=== PATIENT | male | born 1975 ===

== ENCOUNTER 2017-03-29 07:18 | Observation (INO) | payer BC ==
--- NOTE | 2017-03-29 07:31 | PDOC ---
Attending Attestation - Resident Resident Name: ErnstBrock - ED Attending Attestation I have performed the following: I have examined & evaluated the patient, The case was reviewed & discussed with the resident, I agree w/resident's findings & plan, Exceptions are as noted - HPI HPI: 03/29/17 07:30 The patient is a 41-year-old male, with no significant past medical history, who presents to the emergency department with several days of fever as well as left sided chest wall and shoulder pain. The pain is a sharp stabbing pain. It is only present with purposeful cough and deep inspiration. He denies rash. He denies abdominal pain, nausea, vomiting, diarrhea. He denies trauma. He denies cough. - Physicial Exam PE: 03/29/17 07:30 The patient is well-appearing and in no acute distress Vitals noted Lungs clear to auscultation bilaterally There is some reproducible left chest wall tenderness 03/29/17 07:43 - Medical Decision Making 03/29/17 07:30 The patient is well-appearing and in no acute distress Vitals noted, without SIRS criteria Will obtain chest x-ray Will obtain basic labs 03/29/17 08:12 CXR ED interpretation: LLL infiltrate Labs pending 03/29/17 08:36 CBC noted with white blood cell count of 25 Urinalysis with ketonuria noted He received 1 L of normal saline Will administer 1 L D5 normal saline given ketonuria Chemistries pending Will administer Levaquin, favoring the RTF over a macrolide due to the extent of his leukocytosis Will place on observation 03/29/17 08:47 Clinical impression: Community Acquired Pneumonia Starvation ketosis I discussed the physical exam findings, ancillary test results and final diagnoses with the patient. I answered all of the patient's questions. The patient was satisfied with the care received and felt comfortable with the discharge plan and treatment plan. The patient will call their primary care physician within 24 hours to arrange follow-up and will return to the Emergency Department with any new, persistent or worsening symptoms. 03/29/17 08:47 03/29/17 09:10 Chemistries remained pending The lab is aware of the need to expedite the results Discharge Disposition - Diagnosis Community acquired pneumonia, Ketonuria - Discharge Dispostion Condition at time of disposition: Stable Admit: Yes
--- NOTE | 2017-03-29 08:09 | PDOC ---
History of Present Illness - General Chief Complaint: Shortness of Breath Stated Complaint: FEVER,SOB Time Seen by Provider: 03/29/17 07:20 History Source: Patient Exam Limitations: No Limitations - History of Present Illness Initial Comments: 41 y/o M w/PMH of Yas presents to ER with c/o fevers and L chest wall and L shoulder pain with inspiration since yesterday. Pain started all of a sudden and fevers were recorded at peak of 103 at home. Pt also had night sweats yesterday night and says he went through 10 shirts. Pain is located on L lateral chest wall/midaxillary wall and L anterior shoulder and is rated as a 3/ 10 when pt is inspiring. No pain when not inspiring. Pt had nausea last night but no vomiting and pt has some dizziness. He has traveled to [place] 2 months ago and 1 week ago was in [place] playing golf. Pt denies any cough, sputum production, light-headedness, visual changes, hearing changes, sore throat, itchiness in throat, swelling in throat or mouth, squeezing or pressure like feeling in chest, abdominal pain, diarrhea, constipation, dysuria, blood in urine, blood in stool, peripheral edema. Pt also denies sick contacts. Past History - Travel Traveled outside of the country in the last 30 days: No - Past Medical History Allergies/Adverse Reactions: Allergies Allergy/AdvReac Type Severity Reaction Status Date / Time No Known Drug Allergies Allergy Verified 03/29/17 07:24 sunflower seed Allergy Verified 03/29/17 07:24 Home Medications: Ambulatory Orders Dextroamphetamine/Amphetamine [Adderall Xr 20 mg Capsule] 20 mg PO DAILY Ibuprofen [Advil -] 400 mg PO QID PRN 03/29/17 Lisdexamfetamine Dimesylate [Vyvanse] 70 mg PO DAILY 03/29/17 Psychiatric Problems: Yes (ADD) - Psycho/Social/Smoking Cessation Hx Anxiety: No Suicidal Ideation: No Smoking History: Former smoker Have you smoked in the past 12 months: No Information on smoking cessation initiated: No Review of Systems - Review of Systems Able to Perform ROS?: Yes Comments:: CONSTITUTIONAL: +fevers, chills, diaphoresis, night sweats, generalized weakness. Absent: loss of appetite HEENT: Absent: rhinorrhea, nasal congestion, throat pain, throat swelling, difficulty swallowing, mouth swelling, hearing changes, visual Changes CARDIOVASCULAR: +chest pain Absent: syncope, palpitations, irregular heart rate, lightheadedness, peripheral edema RESPIRATORY: Absent: cough, shortness of breath GASTROINTESTINAL: +nausea Absent: abdominal pain, vomiting, diarrhea, constipation, hematochezia GENITOURINARY: Absent: dysuria, hematuria, flank pain NEUROLOGIC: +dizziness Absent: headache, focal weakness or paresthesias, mental status changes PSYCHIATRIC: Absent: anxiety, depression, suicidal or homicidal ideation, hallucinations *Physical Exam - Vital Signs Last Vital Signs Temp Pulse Resp BP Pulse Ox 99 F 86 16 111/77 98 03/29/17 07:27 03/29/17 07:27 03/29/17 07:27 03/29/17 07:27 03/29/17 07:27 - Physical Exam Comments: GENERAL: Well developed, well nourished. Awake and alert. No acute distress. HEENT: Normocephalic, atraumatic. EOMI. No conjunctival pallor. Sclera are non- icteric. Moist mucous membranes. NECK: +R superficial lateral cervical lymph node, non-tender (is chronic and followed up as outpatient) Supple. Full ROM. CARDIOVASCULAR: Regular rate and rhythm. No murmurs, rubs, or gallops. Distal pulses are 2+ and symmetric. PULMONARY: +L lower lung field mild crackles. No evidence of respiratory distress. No wheezing, rales ABDOMINAL: Soft. Non-tender. Non-distended. No rebound or guarding. No organomegaly. Normoactive bowel sounds. MUSCULOSKELETAL: 5/5 B/L UE strength. Full ROM B/L UE. Normal range of motion at all joints. No bony deformities or tenderness. No CVA tenderness. EXTREMITIES: No cyanosis. No clubbing. No edema. No calf tenderness. SKIN: Warm and dry. No rashes. No jaundice. NEUROLOGICAL: Alert, awake, appropriate. Cranial nerves 2-12 grossly intact. Appropriate mood and affect. Heart Score/ECG Review - ECG Intrepretation Comment:: March 29, 2017 8:17:14 NSR @ 83 bpm Incomplete RBBB ED Treatment Course - LABORATORY CBC & Chemistry Diagram: 03/29/17 08:09 03/29/17 08:09 Medical Decision Making - Medical Decision Making 03/29/17 08:00 CXR ordered, EKG ordered, CBC, CMP, Cardiac profile ordered 03/29/17 08:29 CXR shows L lower lobe infiltrate. 03/29/17 08:36 WBC at 25.3, UA shows 2+ blood, 2+ ketones Will order D5-NS, IV levaquin, lactic acid, blood culture. Urine antigens for PNA also sent with serum sodium at 133. Pt will likely require at obs admission. *DC/Admit/Observation/Transfer Diagnosis at time of Disposition: Community acquired pneumonia, Ketonuria - Discharge Dispostion Condition at time of disposition: Stable
[2017-03-29 08:15] LABS: URINE APPEARANCE Clear; URINE BILIRUBIN 1+ (NEGATIVE); URINE GLUCOSE (UA) Negative (NEGATIVE); URINE KETONE 2+ (NEGATIVE); URINE LEUK ESTERASE Negative (NEGATIVE); URINE NITRITE Negative (NEGATIVE); URINE UROBILINOGEN 4.0 E.U/dl (0.2-1.0)
[2017-03-29 08:27] LABS: MEAN CELL VOLUME 85.2 fl (80-96); WHITE BLOOD COUNT 25.3 K/mm3 (4.0-10.8)
[2017-03-29 08:28] LABS: MEAN PLT VOLUME 7.7 fl (7.5-11.1); PLATELET COUNT 248 K/MM3 (134-434); RDW 12.9 % (11.9-15.9)
[2017-03-29 08:29] LABS: URINE BLOOD 2+ (NEGATIVE); URINE PROTEIN 2+ (NEGATIVE)
[2017-03-29 08:30] LABS: URINE COLOR DK YELLOW
[2017-03-29] MEDS ORDERED: LEVOFLOXACIN 750 MG IVPB 150 ML IVPB ONE ×2 (08:38→08:41)
[2017-03-29] MEDS ORDERED: DEXTROSE 5%-NORMAL SALINE 1,000 ML IV SCH ×2 (08:45→10:15)
[2017-03-29 09:35] LABS: CPK(DFH) 78 IU/L (38-174)
[2017-03-29 09:36] LABS: ANION GAP 10 (8-16); CO2 26 mmol/L (22-28); CREATININE 1.1 mg/dl (0.6-1.3); GLUCOSE,RANDOM 127 mg/dl (74-106); TROPONIN I (DFP) < 0.03 ng/ml (0.03-0.50)
[2017-03-29 09:37] LABS: ALK PHOS 74 U/L (32-92); CALCIUM 9.5 mg/dl (8.4-10.2); SGOT/AST 21 U/L (10-42); SGPT/ALT 18 U/L (10-40); TOT PROT 6.6 g/dl (6.4-8.3)
[2017-03-29 09:40] LABS: URINE RBC 20-30 /hpf (0-3)
[2017-03-29] MEDS ORDERED: ACETAMINOPHEN 325 MG TABLET (FP) PO ONE (10:12)
[2017-03-29] MEDS ORDERED: ACETAMINOPHEN 325 MG TABLET (FP) PO PRN (10:15)
--- NOTE | 2017-03-29 10:46 | HP ---
CHIEF COMPLAINT: Left chest wall pain and fever PCP: in [facility] HISTORY OF PRESENT ILLNESS: This is a 41 year old male with no significant past medical history who presented to the ED with left chest wall and shoulder pain with fever x 1.5 days. Tmax at home 103. Upon exam, pt still with chest pain, merlene with cough. Pt denies cough at home but coughed several times during exam. ER course was notable for: (1) WBC 25.3 (2) CXR with LLL infiltrate (3) Sodium 133, urine 2+ ketone Recent Travel: [place] 2 months ago, [place] 1 week ago PAST MEDICAL HISTORY: ADD PAST SURGICAL HISTORY: L knee arthroscopy for ACL tear Social History: Smoking: quit 5 years ago, 5-7 pack year history Alcohol: socially 2x / month Drugs: none Family History: mother alive and well father with pancreatic CA Paternal grandfather and all his brothers with [place] 1 brother and 1 sister without medical problems Allergies No Known Drug Allergies Allergy (Verified 03/29/17 07:24) sunflower seed Allergy (Verified 03/29/17 07:24) HOME MEDICATIONS: 3 Medication Instructions Recorded Dextroamphetamine/Amphetamine 20 mg PO DAILY 03/29/17 [Adderall Xr 20 mg Capsule] Ibuprofen [Advil -] 400 mg PO QID PRN 03/29/17 Lisdexamfetamine Dimesylate 70 mg PO DAILY 03/29/17 [Vyvanse] REVIEW OF SYSTEMS CONSTITUTIONAL: Present: fever, chills Absent: diaphoresis, generalized weakness, malaise, loss of appetite, weight change HEENT: Absent: rhinorrhea, nasal congestion, throat pain, throat swelling, difficulty swallowing, mouth swelling, ear pain, eye pain, visual changes CARDIOVASCULAR: Present: chest pain Absent: syncope, palpitations, irregular heart rate, lightheadedness, peripheral edema RESPIRATORY: Absent: cough, shortness of breath, dyspnea with exertion, orthopnea, wheezing, stridor, hemoptysis GASTROINTESTINAL: Absent: abdominal pain, abdominal distension, nausea, vomiting, diarrhea, constipation, melena, hematochezia GENITOURINARY: Absent: dysuria, frequency, urgency, hesitancy, hematuria, flank pain, genital pain MUSCULOSKELETAL: Absent: myalgia, arthralgia, joint swelling, back pain, neck pain SKIN: Absent: rash, itching, pallor HEMATOLOGIC/IMMUNOLOGIC: Absent: easy bleeding, easy bruising, lymphadenopathy, frequent infections ENDOCRINE: Absent: unexplained weight gain, unexplained weight loss, heat intolerance, cold intolerance NEUROLOGIC: Absent: headache, focal weakness or paresthesias, dizziness, unsteady gait, seizure, mental status changes, bladder or bowel incontinence PSYCHIATRIC: Absent: anxiety, depression, suicidal or homicidal ideation, hallucinations. PHYSICAL EXAMINATION Vital Signs - 24 hr 3 03/29/17 03/29/17 07:27 10:37 Temperature 99 F 100.7 F H Pulse Rate 86 Pulse Rate [ 79 Left Apical] Respiratory 16 18 Rate Blood Pressure 111/77 Blood Pressure 110/64 [Left Arm] O2 Sat by Pulse 98 99 Oximetry (%) GENERAL: Awake, alert, and fully oriented, in no acute distress. HEAD: Normal with no signs of trauma. EYES: Pupils equal, round and reactive to light, extraocular movements intact, sclera anicteric, conjunctiva clear. No lid lag. EARS, NOSE, THROAT: Ears normal, nares patent, oropharynx clear without exudates. Moist mucous membranes. NECK: Normal range of motion, supple without lymphadenopathy, JVD, or masses. LUNGS: Breath sounds clear to auscultation bilaterally but diminished on left base. No wheezes, and no crackles. No accessory muscle use. HEART: Regular rate and rhythm, normal S1 and S2 without murmur, rub or gallop. ABDOMEN: Soft, nontender, not distended, normoactive bowel sounds, no guarding, no rebound, no masses. No hepatomegaly or splenomegaly. MUSCULOSKELETAL: Normal range of motion at all joints. No bony deformities or tenderness. No CVA tenderness. UPPER EXTREMITIES: 2+ pulses, warm, well-perfused. No cyanosis. No clubbing. No peripheral edema. LOWER EXTREMITIES: 2+ pulses, warm, well-perfused. No calf tenderness. No peripheral edema. NEUROLOGICAL: Cranial nerves II-XII intact. Normal speech. Normal gait. PSYCHIATRIC: Cooperative. Good eye contact. Appropriate mood and affect. SKIN: Warm, dry, normal turgor, no rashes or lesions noted, normal capillary refill. Laboratory Results - last 24 hr 3 03/29/17 03/29/17 03/29/17 03/29/17 08:09 08:09 08:09 08:30 WBC 25.3 H RBC 4.84 Hgb 14.0 Hct 41.2 MCV 85.2 MCHC 34.0 RDW 12.9 Plt Count 248 MPV 7.7 Neutrophils % Y Lymphocytes % Y Sodium 133 L Potassium 4.1 Chloride 96 L Carbon Dioxide 26 Anion Gap 10 BUN 15 Creatinine 1.1 Creat Clearance w eGFR > 60 Random Glucose 127 H Lactic Acid 1.131 Calcium 9.5 Total Bilirubin 2.0 H AST 21 ALT 18 Alkaline Phosphatase 74 Creatine Kinase 78 Troponin I < 0.03 L Total Protein 6.6 Albumin 4.0 Urine Color Dk yellow Urine Appearance Clear Urine pH 7.0 Ur Specific [place] 1.020 Urine Protein 2+ H Urine Glucose (UA) Negative Urine Ketones 2+ H Urine Blood 2+ H Urine Nitrite Negative Urine Bilirubin 1+ H Urine Urobilinogen 4.0 e.u/dl Ur Leukocyte Esterase Negative Urine RBC 20-30 Urine WBC 2-5 Ur Epithelial Cells Few ASSESSMENT/PLAN: 41yM with PMH ADD presented with fever, chills, left chest wall pain. He is being admitted for observation for pneumonia. LLL pneumonia, community acquired with sepsis - levaquin 750 given in ED, cont same - incentive spirometry - IVF D5NS@100cc/hr - given slight hyponatremia, will order legionella antigen - influenza swab ordered. ketonuria - will tx with IVF, D5NS @ 100cc/hr ADD - pt would like to defer tx while in hospital, hold vyvanse and adderall DVT PPX - defer for now, start if LOS >48h FEN - D5NS @100cc/hr - BMP in am - regular diet Dispo: Pt currently requires inpatient monitoring for his emergent condition. Visit type - Emergency Visit Emergency Visit: Yes ED Registration Date: 03/29/17 Care time: The patient presented to the Emergency Department on the above date and was hospitalized for further evaluation of their emergent condition. - New Patient This patient is new to me today: No Date on this admission: 03/29/17 - Critical Care Critical Care patient: No
[2017-03-29 12:53] LABS: PLATELET ESTIMATE NORMAL (NORMAL)
[2017-03-29 13:42] VITALS: BMI 25.0
[2017-03-30 08:47] LABS: MEAN PLT VOLUME 8.2 fl (7.5-11.1)
[2017-03-30 08:51] LABS: BASOPHIL 0.3 % (0-2.0); EOSINOPHIL 0.5 % (0-4.5); MCH 29.3 pg (25.7-33.7); MEAN CELL VOLUME 85.9 fl (80-96); NEUTROPHILS 75.9 % (42.8-82.8); PLATELET COUNT 203 K/MM3 (134-434); RDW 13.1 % (11.9-15.9); WHITE BLOOD COUNT 10.6 K/mm3 (4.0-10.8)
[2017-03-30 09:55] VITALS: TEMP 98
[2017-03-30] MEDS ORDERED: LEVOFLOXACIN 750 MG IVPB 150 ML IVPB SCH (10:00)
[2017-03-30 10:10] LABS: ANION GAP 9 (8-16); CALCIUM 8.7 mg/dl (8.4-10.2); CO2 27 mmol/L (22-28); CREATININE 0.9 mg/dl (0.6-1.3); GLUCOSE,RANDOM 97 mg/dl (74-106); MAGNESIUM 1.9 mg/dL (1.8-2.4); PHOSPHOROUS 1.9 mg/dl (2.5-4.6)
[2017-03-30 10:11] LABS: COCKROFT - GAULT NT
[2017-03-30 11:46] LABS: COCKROFT - GAULT NT
[2017-03-30] MEDS ORDERED: NAPH,MB-DB/K PH,MBDB POWDER PACKET PO ONE (12:00)
[2017-03-30 12:22] VITALS: BP 96/51; PULSE 68
--- NOTE | 2017-03-30 12:23 | DS ---
[id number] OBJECTIVE: Vital Signs Period Temp Pulse Resp BP Sys/Syed Pulse Ox Last 24 Hr 98 F-99.8 F 64-82 18-18 83-131/44-69 97-100 PHYSICAL EXAM GENERAL: The patient is awake, alert, and fully oriented, in no acute distress. HEAD: Normal with no signs of trauma. EYES: PERRL, extraocular movements intact, sclera anicteric, conjunctiva clear. ENT: Ears normal, nares patent, oropharynx clear without exudates, moist mucous membranes. NECK: Trachea midline, full range of motion, supple. LUNGS: Breath sounds equal, clear to auscultation bilaterally, no wheezes, no crackles, no accessory muscle use. HEART: Regular rate and rhythm, S1, S2 without murmur, rub or gallop. ABDOMEN: Soft, nontender, nondistended, normoactive bowel sounds, no guarding, no rebound, no hepatosplenomegaly, no masses. EXTREMITIES: 2+ pulses, warm, well-perfused, no edema. NEUROLOGICAL: Cranial nerves II through XII grossly intact. Normal speech, gait not observed. PSYCH: Normal mood, normal affect. SKIN: Warm, dry, normal turgor, no rashes or lesions noted. LABS Laboratory Results - last 24 hr 03/30/17 03/30/17 06:10 06:10 WBC 10.6 D RBC 4.29 Hgb 12.5 D Hct 36.9 MCV 85.9 MCHC 34.0 RDW 13.1 Plt Count 203 MPV 8.2 Neutrophils % 75.9 Lymphocytes % 14.0 D Monocytes % 9.3 D Eosinophils % 0.5 Basophils % 0.3 Sodium 135 L Potassium 3.7 Chloride 99 Carbon Dioxide 27 Anion Gap 9 BUN 10 D Creatinine 0.9 Random Glucose 97 D Calcium 8.7 Phosphorus 1.9 L Magnesium 1.9 HOSPITAL COURSE: Date of Admission:03/29/17 Date of Discharge: 03/30/17 This is a 41 year old male with ?history of ADHD who presented to the ED with left chest wall and shoulder pain with fever x 1.5 days. Tmax at home 103. In ER , CxR showed LLL infiltrate,WBC 25.3 Sodium 133, and urine 2+ ketone>. Pt was given IV Levaquin with improvement, now remains afebrile, WBC normalized, pt remains asymptomatic, will discharge on Levaquin to complete the course. *Hyponatremia: Na level 133 on admission , IV hydration given with mild improvement, encouraged to increase fluid intake. * For low phosphorus 1.7, phosphorus replaced, found to have elevated T.bili, remains asymptomatic, LFTS normal,recommend out pt followup. Minutes to complete discharge: 40 Discharge Summary Reason For Visit: DX-COMMUNITY ACQUIRED PNA, KETONURIA Current Active Problems Community acquired pneumonia (Acute) Ketonuria (Acute) Condition: Stable - Instructions Diet, Activity, Other Instructions: Regular diet. Increase fluid intake. For any fever, chills, chest pain, shortness of breath, advised to get medical attention. Inform to complete the full course of Levaquin Recommend to followup on Shellacker and Total bilirubin level Referrals: Ronnie Morejon MD [Staff Physician] - 1 Week Disposition: HOME - Home Medications Comprehensive Discharge Medication List: Ambulatory Orders Dextroamphetamine/Amphetamine [Adderall Xr 20 mg Capsule] 20 mg PO DAILY Ibuprofen [Advil -] 400 mg PO QID PRN 03/29/17 Lisdexamfetamine Dimesylate [Vyvanse] 70 mg PO DAILY 03/29/17 Levofloxacin [Levaquin] 750 mg PO DAILY #3 tab 03/30/17 This patient is new to me today: Yes Date on this admission: 03/30/17 Emergency Visit: Yes ED Registration Date: 03/29/17 Care time: The patient presented to the Emergency Department on the above date and was hospitalized for further evaluation of their emergent condition. Critical Care patient: No - Discharge Referral Referred to [facility] Med P.C.: No
--- NOTE | 2017-03-31 13:03 | EKG ---
Test Reason : Blood Pressure : / mmHG Vent. Rate : 083 BPM Atrial Rate : 083 BPM P-R Int : 160 ms QRS Dur : 106 ms QT Int : 352 ms P-R-T Axes : 055 040 042 degrees QTc Int : 413 ms NORMAL SINUS RHYTHM INCOMPLETE RIGHT BUNDLE BRANCH BLOCK BORDERLINE ECG NO PREVIOUS ECGS AVAILABLE Confirmed by ROSS SAENZ MD ([id number]) on 03/31/2017 1:03:34 PM Referred By: LYNDON GAMEZ Confirmed By:ROSS SAENZ MD
== END 2017-03-30 13:43 | disposition home or self-care (01) ==
LOC: FER 07:18 → FM/S 11:59
PROVIDERS: ADMIT Internal Medicine; ATTEND Nurse Practitioner Family
DX: J18.9 Pneumonia, unspecified organism (principal); R82.4 Acetonuria; F98.8 Other specified behavioral and emotional disorders with onset usually occurring in childhood and adolescence; Z87.891 Personal history of nicotine dependence
CPT/HCPCS: 36415; 71020-TC; 80048; 80053; 81003; 81015; 82550; 83605; 83735; 84100; 84484; 85025; 87040; 87254; 87804; 87899; 93005; 99285-25; G0378